=== PATIENT | female | born 1955 | race Caucasian/White ===

== ENCOUNTER 2017-04-20 14:45 | Emergency (ER) | payer OTHER ==
[~2017-04-20] VITALS: Ht 157.5 cm; Wt 94.8 kg
[~2017-04-20 14:45] MED LIST: ACYC5CRE2 TP; AMLO5TAB4 PO; ASPI-496 PO; ASPI-621 PO; ATOR10TA9 PO; ATOR40TA78 PO; BENZ100C4 PO; CHOL100018 PO; DICY10CA3 PO; DIVA500T2 PO; DULO60CA7 PO; GABA100C8 PO; INSU100C5 SQ-INSULIN; INSU100I13 SC; INSU100I13 SQ-INSULIN; INSU100I17 SC; INSU100I17 SQ; INSU100I18 SQ; INSU100V8 SC; LEVO500T33 PO; LEVO75TA5 PO; LIRA0.6P SQ; LISI-167 PO; METF850T2 PO; METO10TA82 PO; MORP15TA3 PO; MORP30TA PO; OXYC-229 PO; OXYC5TAB3 PO; POLY17PO5 PO; RIZA10TA20 PO; SENN1TAB7 PO; SERT50TA5 PO; SIMV20TA PO; SIMV40TA3 PO; TIZA4CAP PO; VALA500T4 PO
[2017-04-20] MEDS ORDERED: PHENAZOPYRIDINE 200 MG TABLET PO ONE (16:00)
[2017-04-20] MEDS ORDERED: ONDANSETRON 2MG/ML, 2ML IVPush ONE (16:00)
[2017-04-20] MEDS ORDERED: SODIUM CHLORIDE 0.9% 1,000ML IVBOLUS ONE (16:00)
[2017-04-20 16:30] LABS: PH, VENOUS 7.443 pH (7.320-7.420)
[2017-04-20 16:38] LABS: ASPARTATE AMINO TRANSFERASE 20 U/L (15-37); BLOOD UREA NITROGEN 13 mg/dL (7-18)
[2017-04-20] MEDS ORDERED: ONDANSETRON 2MG/ML, 2ML ONE (18:13)
[2017-04-20] MEDS ORDERED: PHENAZOPYRIDINE 200 MG TABLET ONE (18:13)
[2017-04-20 18:30] VITALS: BP 125/81
[2017-04-20] MEDS ORDERED: CEFTRIAXONE PMX 1GM/50ML 50 ML IV ONE (18:30)
[2017-04-20] MEDS ORDERED: CEFTRIAXONE 1,000 MG IV ONE (18:30)
[2017-04-20] MEDS ORDERED: CEFTRIAXONE PMX 1GM/50ML 50 ML ONE (18:34)
[2017-04-20] MEDS ORDERED: DIAZ10TA PO (19:03)
[2017-04-20] MEDS ORDERED: INSU100C SQ-INSULIN (19:03)
[2017-04-20] MEDS ORDERED: OXYC-229 PO (19:03)
[2017-04-20] MEDS ORDERED: MORPHINE SULFATE 4 MG/ML, 1ML ONE (19:17)
[2017-04-20] MEDS ORDERED: MORPHINE SULFATE 4 MG/ML, 1ML IVPush ONE (19:30)
== END 2017-04-20 19:55 | disposition home or self-care (01) ==
LOC: ED 18:49
DX: N10 Acute pyelonephritis (principal); R10.84 Generalized abdominal pain; E11.65 Type 2 diabetes mellitus with hyperglycemia; E78.5 Hyperlipidemia, unspecified; E87.6 Hypokalemia; E03.9 Hypothyroidism, unspecified; Z90.49 Acquired absence of other specified parts of digestive tract; Z90.710 Acquired absence of both cervix and uterus; J45.909 Unspecified asthma, uncomplicated; Z86.73 Personal history of transient ischemic attack (TIA), and cerebral infarction without residual deficits
CPT/HCPCS: 36415; 74176; 80053; 81001; 82010; 82803; 85025; 87077; 87086; 96365; 96375; 99285; J0696; J2405; J7030; 87147; 87186

== ENCOUNTER → 2017-11-17 | Outpatient (CLI) | payer OTHER ==
[~2017-11-17] MED LIST changes: +BENZ-17 PO; -BENZ100C4 PO; +CHOL100012 PO; -CHOL100018 PO; +DIAZ10TA PO; +GABA-826 PO; -GABA100C8 PO; +INSU100C SQ-INSULIN; -LEVO500T33 PO; +LEVO500T47 PO; -OXYC-229 PO; +OXYC-307 PO
== END | disposition home or self-care (01) ==
LOC: CFH 09:35
PROVIDERS: ATTEND Nurse Practitioner
DX: Z13.820 Encounter for screening for osteoporosis (principal); N95.8 Other specified menopausal and perimenopausal disorders
CPT/HCPCS: 77080

== ENCOUNTER → 2017-11-26 | Outpatient (CLI) | payer OTHER ==
[~2017-11-26] MED LIST changes: +FENO145T13 PO; +INSU300I INJ; +LISI1TAB7 PO; +OXYB5TAB7 PO
[2017-11-26 09:19] LABS: ALANINE AMINOTRANSFERASE 30 U/L (12-78); ALBUMIN 3.7 g/dL (3.4-5.0); ANION GAP 9 mmol/L (5-15); CALCIUM 9.1 mg/dL (8.5-10.1); CHLORIDE 107 mmol/L (98-107); CREATININE 0.82 mg/dL (0.55-1.02)
[2017-11-26 09:22] LABS: ALKALINE PHOSPHATASE 128 U/L (45-117); BILIRUBIN,TOTAL 0.4 mg/dL (0.2-1.0); TOTAL PROTEIN 7.4 g/dL (6.4-8.2)
[2017-11-26 09:43] LABS: MICROSCOPIC INDICATED
[2017-11-26 09:47] LABS: CULTURE INDICATED? YES
== END | disposition home or self-care (01) ==
LOC: STAR 07:57
PROVIDERS: ATTEND Obstetrics & Gynecology Female Pelvic Medicine and Reconstructive Surgery
DX: N39.3 Stress incontinence (female) (male) (principal); N81.2 Incomplete uterovaginal prolapse
CPT/HCPCS: 36415; 80053; 81001; 87077; 87086; 87186; 93005

== ENCOUNTER 2017-11-30 09:31 | Day surgery (SDC) | payer OTHER ==
[~2017-11-30] VITALS: Ht 157.5 cm; Wt 93.9 kg
[~2017-11-30 09:31] MED LIST changes: +BUPIVACAINE/PF 0.25% ONE; +EPINEPHRINE 1 MG/ML, 1ML ONE; +NEOMY/POLYMYXIN B GU IRR. 1 ML IRRIG ONE
[2017-11-30] MEDS ORDERED: LACTATED RINGERS 1,000 ML IV SCH (09:50)
[2017-11-30 10:06] VITALS: BP 113/79
[2017-11-30] MEDS ORDERED: ALBU18HF INH (10:42)
[2017-11-30] MEDS ORDERED: FENTANYL PF 100 MCG/2ML ONE ×3 (10:54→13:30)
[2017-11-30] MEDS: FENTANYL PF 100 MCG/2ML IVPush PRN ×2 (11:01→11:43)
[2017-11-30] MEDS ORDERED: LIDOCAINE-MPF 2% ,5ML ONE (12:24)
[2017-11-30] MEDS ORDERED: PROPOFOL 10 MG/ML, 20ML ONE (12:24)
[2017-11-30] MEDS ORDERED: LIDOCAINE GEL 2%, 5ML ONE (12:24)
[2017-11-30] MEDS ORDERED: DEXAMETHASONE 4 MG/ML, 1ML ONE ×2 (12:39)
[2017-11-30] MEDS ORDERED: CEFAZOLIN 1,000 MG ONE ×2 (12:39)
[2017-11-30] MEDS ORDERED: ONDANSETRON 2MG/ML, 2ML ONE (12:39)
[2017-11-30] MEDS ORDERED: MEPERIDINE/PF 25MG/0.5ML IVPush PRN (13:30)
[2017-11-30] MEDS ORDERED: ONDANSETRON 2MG/ML, 2ML IVPush PRN (13:30)
[2017-11-30] MEDS ORDERED: ACETAMINOPHEN 325 MG TABLET PO PRN (13:30)
[2017-11-30] MEDS ORDERED: ACETAMINOPHEN 650 MG/20.3 ML UDC ONE (13:30)
[2017-11-30] MEDS ORDERED: morphine SULFATE 10 MG/ML, 1ML IV PRN (13:30)
[2017-11-30] MEDS ORDERED: OXYcodone 5 MG/5 ML ORAL.SOL UDC ONE ×2 (13:30→13:52)
[2017-11-30] MEDS ORDERED: HYDROcodone/APAP 7.5-325MG/15ML UDC PO PRN (13:30)
[2017-11-30] MEDS: FENTANYL PF 100 MCG/2ML IV PRN ×2 (13:31→13:39)
[2017-11-30] MEDS: OXYcodone 5 MG/5 ML ORAL.SOL UDC PO PRN ×2 (13:35→13:54)
[2017-11-30] MEDS ORDERED: KETOROLAC 30 MG/1 ML ONE (13:44)
[2017-11-30] MEDS ORDERED: HYDROmorphone 2 MG/ML, 1ML ONE (13:52)
[2017-11-30] MEDS: HYDROmorphone 1 MG/ML, 1ML IV PRN ×4 (13:58→14:22)
[2017-11-30] MEDS ORDERED: KETOROLAC 30 MG/1 ML IVPush PRN (14:00)
[2017-11-30] MEDS ORDERED: OXYcodone/APAP 5/325MG TABLET ONE (15:20)
[2017-11-30] MEDS ORDERED: OXYcodone/APAP 5/325MG TABLET PO ONE ×2 (15:30→16:00)
== END 2017-11-30 17:00 ==
LOC: OUT 09:31
PROVIDERS: ATTEND Obstetrics & Gynecology Female Pelvic Medicine and Reconstructive Surgery
DX: N99.3 Prolapse of vaginal vault after hysterectomy (principal); N39.46 Mixed incontinence; N94.10 Unspecified dyspareunia; E11.9 Type 2 diabetes mellitus without complications; I10 Essential (primary) hypertension; J45.909 Unspecified asthma, uncomplicated; G43.909 Migraine, unspecified, not intractable, without status migrainosus; Z90.49 Acquired absence of other specified parts of digestive tract; Z98.890 Other specified postprocedural states; Z90.710 Acquired absence of both cervix and uterus
CPT/HCPCS: 57265; 57282; 57288; 82962; C1771; J0171; J0690; J1100; J1170; J1885; J2405; J2704; J3010; J3490; J7120

== ENCOUNTER → 2018-05-27 | Outpatient (CLI) | payer OTHER ==
[~2018-05-27] MED LIST changes: +ALBU18HF INH; -BUPIVACAINE/PF 0.25% ONE; -EPINEPHRINE 1 MG/ML, 1ML ONE; -FENO145T13 PO; +FENO145T30 PO; -NEOMY/POLYMYXIN B GU IRR. 1 ML IRRIG ONE
== END | disposition home or self-care (01) ==
LOC: RAD 12:10
PROVIDERS: ATTEND Anesthesiology
DX: M96.1 Postlaminectomy syndrome, not elsewhere classified (principal); N94.89 Other specified conditions associated with female genital organs and menstrual cycle
CPT/HCPCS: 72110; 72220

== ENCOUNTER 2018-05-31 15:31 | Emergency (ER) | payer OTHER ==
[~2018-05-31] VITALS: Ht 157.5 cm; Wt 95.0 kg
[2018-05-31] MEDS ORDERED: ASPIRIN 81 MG TABLET CHEW ONE (15:47)
[2018-05-31] MEDS ORDERED: PLEASE ENTER HEIGHT AND WEIGHT MC SCH (16:00)
[2018-05-31] MEDS ORDERED: ASPIRIN 81 MG TABLET CHEW PO ONE (16:00)
[2018-05-31] MEDS ORDERED: SODIUM CHLORIDE FLUSH 10ML SYR IVF ONE (16:00)
[2018-05-31 16:46] LABS: BASOPHILS # (AUTO) 0.03 x10^3/uL (0-0.1); BASOPHILS % (AUTO) 0 % (0-1); EOSINOPHILS # (AUTO) 0.13 x10^3/uL (0-0.4); EOSINOPHILS % (AUTO) 2 % (1-7); LYMPHOCYTES # (AUTO) 2.54 x10^3/uL (1-3.4); LYMPHOCYTES % (AUTO) 30 % (22-44); MD NO; MEAN CORPUSCULAR HEMOGLOBIN 27.8 pg (27.0-34.8); MEAN CORPUSCULAR HGB CONC 34.2 g/dL (32.4-35.8); MEAN CORPUSCULAR VOLUME 81.3 fL (80-100); MEAN PLATELET VOLUME 8.5 fL (7.4-10.4); MONOCYTES # (AUTO) 0.47 x10^3/uL (0.2-0.8); MONOCYTES % (AUTO) 6 % (2-9); NEUTROPHILS # (AUTO) 5.31 x10^3/uL (1.8-6.8); NEUTROPHILS % (AUTO) 63 % (42-75); PLATELET COUNT 238 x10^3/uL (130-400); RED BLOOD COUNT 5.47 x10^6/uL (3.82-5.3); RED CELL DISTRIBUTION WIDTH 13.2 % (9.6-15.2)
[2018-05-31 16:57] LABS: ALBUMIN 3.5 g/dL (3.4-5.0); ANION GAP 10 mmol/L (5-15); CALCIUM 9.5 mg/dL (8.5-10.1); CHLORIDE 107 mmol/L (98-107); CREATININE 0.82 mg/dL (0.55-1.02)
[2018-05-31 17:01] LABS: TROPONIN I < 0.015 ng/mL (0.000-0.045)
[2018-05-31] MEDS ORDERED: HYDROmorphone 2 MG/ML, 1ML ONE (17:47)
[2018-05-31] MEDS ORDERED: HYDROmorphone 2 MG/ML, 1ML IVPush ONE (18:00)
[2018-05-31 18:35] LABS: TROPONIN I < 0.015 ng/mL (0.000-0.045)
[2018-05-31 18:58] VITALS: BP 167/93
== END 2018-05-31 19:01 | disposition home or self-care (01) ==
LOC: ED 18:17
DX: R07.89 Other chest pain (principal); R51 Headache; E03.9 Hypothyroidism, unspecified; E11.40 Type 2 diabetes mellitus with diabetic neuropathy, unspecified; Z86.73 Personal history of transient ischemic attack (TIA), and cerebral infarction without residual deficits; Z79.899 Other long term (current) drug therapy
CPT/HCPCS: 36415; 70450; 71045; 80048; 82040; 83880; 84484; 85025; 96374; 99285; J1170

== ENCOUNTER 2018-09-25 16:18 | Emergency (ER) | payer OTHER ==
[~2018-09-25] VITALS: Ht 157.5 cm; Wt 95.0 kg
[~2018-09-25 16:18] MED LIST changes: +METF850T10 PO; -METF850T2 PO; -SENN1TAB7 PO; +SENN1TAB8 PO
[2018-09-25] MEDS ORDERED: PROMETHAZINE 25 MG/ML, 1ML IM ONE (17:00)
[2018-09-25] MEDS ORDERED: HYDROmorphone 1 MG/ML, 1ML IM ONE (17:00)
[2018-09-25] MEDS ORDERED: HYDROmorphone 2 MG/ML, 1ML ONE (17:01)
[2018-09-25] MEDS ORDERED: PROMETHAZINE 25 MG/ML, 1ML ONE (17:01)
[2018-09-25] MEDS ORDERED: KETOROLAC 30 MG/1 ML ONE (17:56)
[2018-09-25] MEDS ORDERED: KETOROLAC 60 MG/2 ML IM ONE (18:00)
[2018-09-25 18:15] VITALS: BP 115/61
== END 2018-09-25 18:17 | disposition home or self-care (01) ==
LOC: ED 18:00
DX: G44.201 Tension-type headache, unspecified, intractable (principal); G89.29 Other chronic pain; E11.40 Type 2 diabetes mellitus with diabetic neuropathy, unspecified; E11.65 Type 2 diabetes mellitus with hyperglycemia; E66.01 Morbid (severe) obesity due to excess calories; Z68.38 Body mass index [BMI] 38.0-38.9, adult; Z86.73 Personal history of transient ischemic attack (TIA), and cerebral infarction without residual deficits
CPT/HCPCS: 70450; 93005; 96372; 99284; J1170; J1885; J2550

== ENCOUNTER → 2019-01-05 | Outpatient (CLI) | payer MEDICARE, MEDICAID ==
[~2019-01-05] MED LIST changes: -ASPI-621 PO; +ASPI81TA45 PO; +BREX0.25 PO; +MIRA50TA PO; +SERT50TA28 PO; -SERT50TA5 PO
[2019-01-05 11:06] LABS: ALANINE AMINOTRANSFERASE 34 U/L (12-78); ALBUMIN 3.7 g/dL (3.4-5.0); ANION GAP 6 mmol/L (5-15); CHLORIDE 103 mmol/L (98-107); CREATININE 0.65 mg/dL (0.55-1.02)
[2019-01-05 11:09] LABS: ALKALINE PHOSPHATASE 152 U/L (45-117); BILIRUBIN,TOTAL 0.5 mg/dL (0.2-1.0); TOTAL PROTEIN 7.1 g/dL (6.4-8.2)
== END | disposition home or self-care (01) ==
LOC: STAR 10:00
PROVIDERS: ATTEND Obstetrics & Gynecology Female Pelvic Medicine and Reconstructive Surgery
DX: Z01.818 Encounter for other preprocedural examination (principal); N39.3 Stress incontinence (female) (male); N81.10 Cystocele, unspecified; N81.6 Rectocele
CPT/HCPCS: 36415; 80053; 93005

== ENCOUNTER 2019-01-17 05:42 | Day surgery (SDC) | payer MEDICARE, MEDICAID ==
[~2019-01-17] VITALS: Ht 154.9 cm; Wt 93.3 kg
[~2019-01-17 05:42] MED LIST changes: +SENN-177 PO; -SENN1TAB8 PO
[2019-01-17] MEDS ORDERED: LACTATED RINGERS 1,000 ML IV SCH (06:08)
[2019-01-17 06:13] VITALS: BP 127/87
[2019-01-17] MEDS ORDERED: EPINEPHRINE 1 MG/ML, 1ML ONE (06:55)
[2019-01-17] MEDS ORDERED: BUPIVACAINE/PF 0.25% ONE (06:55)
[2019-01-17] MEDS ORDERED: FENTANYL PF 250 MCG/5ML ONE (07:19)
[2019-01-17] MEDS ORDERED: MIDAZOLAM 1 MG/ML, 2ML ONE (07:19)
[2019-01-17] MEDS ORDERED: NEOMY/POLYMYXIN B GU IRR. 1 ML ONE (07:23)
[2019-01-17] MEDS ORDERED: DEXAMETHASONE 4 MG/ML, 5ML ONE (07:27)
[2019-01-17] MEDS ORDERED: ROCURONIUM 10 MG/ML,10ML ONE (07:27)
[2019-01-17] MEDS ORDERED: CEFAZOLIN 1,000 MG ONE (07:27)
[2019-01-17] MEDS ORDERED: PROPOFOL 10 MG/ML, 20ML ONE (07:27)
[2019-01-17] MEDS ORDERED: ONDANSETRON 2MG/ML, 2ML ONE (07:27)
[2019-01-17] MEDS ORDERED: SUCCINYLCHOLINE 20 MG/ML, 10ML ONE (07:27)
[2019-01-17] MEDS ORDERED: DIAZEPAM 5 MG TABLET PO ONE (07:30)
[2019-01-17] MEDS ORDERED: ACETAMINOPHEN 500 MG TABLET PO ONE (07:30)
[2019-01-17] MEDS ORDERED: BUPIVACAINE/PF-EPI 0.25% 1:200K INFIL ONE (07:44)
[2019-01-17] MEDS ORDERED: FENTANYL PF 100 MCG/2ML IV PRN (08:00)
[2019-01-17] MEDS ORDERED: ONDANSETRON 2MG/ML, 2ML IV PRN (08:00)
[2019-01-17] MEDS ORDERED: ONDANSETRON ODT 8 MG PO PRN (08:00)
[2019-01-17] MEDS ORDERED: LORazepam 2 MG/ML, 1ML IVPush PRN (08:00)
[2019-01-17] MEDS ORDERED: HYDROmorphone 2 MG/ML, 1ML IVPush PRN (08:00)
[2019-01-17] MEDS ORDERED: OXYcodone 5 MG/5 ML ORAL.SOL UDC PO PRN (08:00)
[2019-01-17] MEDS ORDERED: PROMETHAZINE 25 MG/ML, 1ML IV PRN (08:00)
[2019-01-17] MEDS ORDERED: KETOROLAC 30 MG/1 ML ONE (08:47)
[2019-01-17] MEDS ORDERED: KETOROLAC 30 MG/1 ML IVPush PRN (09:00)
[2019-01-17] MEDS ORDERED: OXYcodone 5 MG/5 ML ORAL.SOL UDC ONE (09:04)
== END 2019-01-17 13:05 | disposition home or self-care (01) ==
LOC: OUT 05:42
PROVIDERS: ATTEND Obstetrics & Gynecology Female Pelvic Medicine and Reconstructive Surgery
DX: N39.46 Mixed incontinence (principal); N81.89 Other female genital prolapse; N94.10 Unspecified dyspareunia; G43.909 Migraine, unspecified, not intractable, without status migrainosus; E11.9 Type 2 diabetes mellitus without complications; J45.909 Unspecified asthma, uncomplicated; I25.2 Old myocardial infarction; Z79.899 Other long term (current) drug therapy; Z90.49 Acquired absence of other specified parts of digestive tract; Z98.890 Other specified postprocedural states; Z90.710 Acquired absence of both cervix and uterus; Z88.8 Allergy status to other drugs, medicaments and biological substances; Z86.73 Personal history of transient ischemic attack (TIA), and cerebral infarction without residual deficits; Z79.84 Long term (current) use of oral hypoglycemic drugs
CPT/HCPCS: 57265; 57282; 57288; 82962; C1781; J0171; J0330; J0690; J1100; J1885; J2250; J2405; J2704; J3010; J3490; J7120

== ENCOUNTER 2019-02-01 17:43 | Emergency (ER) | payer MEDICARE, MEDICAID ==
[~2019-02-01] VITALS: Ht 154.9 cm; Wt 95.3 kg
[2019-02-01 18:28] VITALS: BP 186/103
[2019-02-01 18:55] LABS: BASOPHILS # (AUTO) 0.06 x10^3/uL (0-0.1); BASOPHILS % (AUTO) 1 % (0-1); EOSINOPHILS # (AUTO) 0.33 x10^3/uL (0-0.4); EOSINOPHILS % (AUTO) 4 % (1-7); LYMPHOCYTES # (AUTO) 2.97 x10^3/uL (1-3.4); LYMPHOCYTES % (AUTO) 39 % (22-44); MD NO; MEAN CORPUSCULAR HEMOGLOBIN 28.3 pg (27.0-34.8); MEAN CORPUSCULAR HGB CONC 34.3 g/dL (32.4-35.8); MEAN CORPUSCULAR VOLUME 82.5 fL (80-100); MONOCYTES % (AUTO) 7 % (2-9); NEUTROPHILS # (AUTO) 3.73 x10^3/uL (1.8-6.8); NEUTROPHILS % (AUTO) 49 % (42-75); PLATELET COUNT 287 x10^3/uL (130-400); RED BLOOD COUNT 5.48 x10^6/uL (3.82-5.3); RED CELL DISTRIBUTION WIDTH 13.4 % (9.6-15.2)
[2019-02-01 19:01] LABS: ALBUMIN 3.6 g/dL (3.4-5.0); ANION GAP 7 mmol/L (5-15); CALCIUM 9.1 mg/dL (8.5-10.1); CHLORIDE 107 mmol/L (98-107); CREATININE 0.58 mg/dL (0.55-1.02)
--- NOTE | 2019-02-01 20:15 | NUR ---
PT T ROOM PLACED IN GOWN AND IV STAREDD AWAITING CT SCAN
[2019-02-01] MEDS ORDERED: MORPHINE SULFATE 4 MG/ML, 1ML IVPush PRN (20:30)
[2019-02-01] MEDS ORDERED: MORPHINE SULFATE 4 MG/ML, 1ML ONE (20:41)
--- NOTE | 2019-02-01 20:45 | NUR ---
PT MEDICATED FOR PAIN AND AWAITING CT SCAN.
[2019-02-01] MEDS ORDERED: OMNIPAQUE 350 MG/ML, 100ML BOTTLE ONE (21:05)
[2019-02-01] MEDS ORDERED: KETOROLAC 30 MG/1 ML ONE (21:44)
[2019-02-01] MEDS ORDERED: KETOROLAC 30 MG/1 ML IVPush ONE (22:00)
== END 2019-02-01 22:04 | disposition home or self-care (01) ==
LOC: ED 21:57
DX: R10.31 Right lower quadrant pain (principal); E78.5 Hyperlipidemia, unspecified; E11.9 Type 2 diabetes mellitus without complications; E03.9 Hypothyroidism, unspecified; J45.909 Unspecified asthma, uncomplicated; F41.1 Generalized anxiety disorder; Z79.899 Other long term (current) drug therapy; Z90.710 Acquired absence of both cervix and uterus; Z90.49 Acquired absence of other specified parts of digestive tract; Z86.73 Personal history of transient ischemic attack (TIA), and cerebral infarction without residual deficits
CPT/HCPCS: 36415; 72193; 80048; 82040; 85025; 93971; 96374; 96375; 99284; J1885; Q9967

== ENCOUNTER 2019-02-18 18:21 | Emergency (ER) | payer MEDICARE, MEDICAID ==
[~2019-02-18] VITALS: Ht 154.9 cm; Wt 91.0 kg
--- NOTE | 2019-02-18 18:57 | NUR ---
PT BEDSIDE REPORT FROM KARL MATTHEWS. THIS RN TO ASSUME CARE OF PT. PA AT BEDSIDE FOR ASSESSMENT.
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
[2019-02-18] MEDS ORDERED: SODIUM CHLORIDE FLUSH 10ML SYR IVF ONE (19:00)
[2019-02-18] MEDS ORDERED: MORPHINE SULFATE 4 MG/ML, 1ML IVPush PRN (19:00)
[2019-02-18] MEDS ORDERED: ONDANSETRON 2MG/ML, 2ML IVPush ONE (19:00)
[2019-02-18] MEDS ORDERED: ONDANSETRON 2MG/ML, 2ML ONE (19:02)
[2019-02-18] MEDS ORDERED: MORPHINE SULFATE 4 MG/ML, 1ML ONE (19:02)
[2019-02-18 19:20] LABS: ALBUMIN 3.8 g/dL (3.4-5.0); ANION GAP 8 mmol/L (5-15); CALCIUM 9.2 mg/dL (8.5-10.1); CHLORIDE 107 mmol/L (98-107); CREATININE 0.74 mg/dL (0.55-1.02)
[2019-02-18 19:27] LABS: BASOPHILS # (AUTO) 0.06 x10^3/uL (0-0.1); BASOPHILS % (AUTO) 1 % (0-1); EOSINOPHILS # (AUTO) 0.33 x10^3/uL (0-0.4); EOSINOPHILS % (AUTO) 4 % (1-7); LYMPHOCYTES # (AUTO) 2.81 x10^3/uL (1-3.4); LYMPHOCYTES % (AUTO) 35 % (22-44); MD NO; MEAN CORPUSCULAR HEMOGLOBIN 28.3 pg (27.0-34.8); MEAN CORPUSCULAR HGB CONC 34.3 g/dL (32.4-35.8); MEAN CORPUSCULAR VOLUME 82.5 fL (80-100); MEAN PLATELET VOLUME 8.6 fL (7.4-10.4); MONOCYTES # (AUTO) 0.55 x10^3/uL (0.2-0.8); MONOCYTES % (AUTO) 7 % (2-9); NEUTROPHILS # (AUTO) 4.35 x10^3/uL (1.8-6.8); NEUTROPHILS % (AUTO) 54 % (42-75); PLATELET COUNT 260 x10^3/uL (130-400); RED BLOOD COUNT 5.39 x10^6/uL (3.82-5.3); RED CELL DISTRIBUTION WIDTH 13.2 % (9.6-15.2)
--- NOTE | 2019-02-18 19:35 | NUR ---
PT STATES "MORPHINE DOES NOTHING FOR ME" PA MADE AWARE. PA STATES TO GIVE MORPHINE AND PT VERBALLY AGREES.
[2019-02-18 19:46] LABS: CULTURE INDICATED? YES; MICROSCOPIC INDICATED
--- NOTE | 2019-02-18 19:50 | NUR ---
PT IN US.
[2019-02-18 20:02] LABS: ALKALINE PHOSPHATASE 122 U/L (45-117); BILIRUBIN,TOTAL 0.5 mg/dL (0.2-1.0); TOTAL PROTEIN 6.6 g/dL (6.4-8.2)
--- NOTE | 2019-02-18 20:10 | NUR ---
GIVEN ICE CHIPS PER REQUEST. AWAITING US RESULTS.
[2019-02-18 20:14] LABS: ALANINE AMINOTRANSFERASE 29 U/L (12-78)
[2019-02-18] MEDS ORDERED: CEFTRIAXONE PMX 1GM/50ML 50 ML ONE (20:21)
[2019-02-18 20:24] VITALS: BP 156/80
--- NOTE | 2019-02-18 20:25 | NUR ---
ABX INFUSING AND THEN TBDC.
[2019-02-18] MEDS ORDERED: CEFTRIAXONE PMX 1GM/50ML 50 ML IV ONE (20:30)
[2019-02-18] MEDS ORDERED: CEFTRIAXONE 1,000 MG IM ONE (20:30)
== END 2019-02-18 20:47 | disposition home or self-care (01) ==
LOC: ED 20:40
DX: N30.01 Acute cystitis with hematuria (principal); G89.29 Other chronic pain; R10.2 Pelvic and perineal pain; E11.65 Type 2 diabetes mellitus with hyperglycemia; Z90.49 Acquired absence of other specified parts of digestive tract; Z90.710 Acquired absence of both cervix and uterus; Z86.73 Personal history of transient ischemic attack (TIA), and cerebral infarction without residual deficits
CPT/HCPCS: 36415; 76830; 80053; 81001; 83690; 85025; 87077; 87086; 87147; 96365; 96375; 99284; J0696; J2405

== ENCOUNTER → 2019-02-23 | Outpatient (CLI) | payer MEDICARE, MEDICAID | END | disposition home or self-care (01) | LOC: RAD 09:59 | PROVIDERS: ATTEND Nurse Practitioner Primary Care | DX: M16.11 Unilateral primary osteoarthritis, right hip (principal) ==

== ENCOUNTER 2019-03-04 10:11 | Emergency (ER) | payer MEDICARE, MEDICAID ==
[~2019-03-04] VITALS: Ht 154.9 cm; Wt 90.8 kg
--- NOTE | 2019-03-04 10:34 | NUR ---
PT UP TO RESTROOM FOR UA SPECIMEN AND POSSIBLY STOOL SAMPLE DUE TO DIARRHEA. PT C/O N/V/D FOR 2 WEEKS WITH LUQ ABD PAIN OVER SAME TIME. PT HAS BEEN TREATED WITH ANTIBIOTICS FOR UTI THAT PER PT SHE DID NOT NEED PER HER PMD. CHART UP FOR .
[2019-03-04 11:23] LABS: MICROSCOPIC AUTO
[2019-03-04 11:24] LABS: CULTURE INDICATED? YES
[2019-03-04] MEDS ORDERED: FAMOTIDINE 20 MG/2 ML ONE (11:26)
[2019-03-04] MEDS ORDERED: ONDANSETRON 2MG/ML, 2ML ONE (11:26)
[2019-03-04] MEDS ORDERED: SODIUM CHLORIDE FLUSH 10ML SYR IVF ONE (11:30)
[2019-03-04] MEDS ORDERED: ONDANSETRON 2MG/ML, 2ML IVPush ONE (11:30)
[2019-03-04] MEDS ORDERED: SODIUM CHLORIDE 0.9% 1,000ML IVBOLUS ONE (11:30)
[2019-03-04] MEDS ORDERED: FAMOTIDINE 20 MG/2 ML IVP ONE (11:30)
[2019-03-04] MEDS ORDERED: MORPHINE SULFATE 4 MG/ML, 1ML ONE ×2 (11:56→12:49)
[2019-03-04 12:03] LABS: CLOSTRIDIUM DIFFICILE ANTIGEN NEGATIVE; CLOSTRIDIUM DIFFICILE TOXIN NEGATIVE (Negative)
[2019-03-04] MEDS: MORPHINE SULFATE 4 MG/ML, 1ML IVPush PRN ×2 (12:04→12:51)
[2019-03-04 12:11] LABS: BASOPHILS # (AUTO) 0.04 x10^3/uL (0-0.1); BASOPHILS % (AUTO) 1 % (0-1); EOSINOPHILS # (AUTO) 0.13 x10^3/uL (0-0.4); EOSINOPHILS % (AUTO) 2 % (1-7); LYMPHOCYTES # (AUTO) 2.23 x10^3/uL (1-3.4); LYMPHOCYTES % (AUTO) 37 % (22-44); MD NO; MEAN CORPUSCULAR HEMOGLOBIN 27.4 pg (27.0-34.8); MEAN CORPUSCULAR HGB CONC 33.7 g/dL (32.4-35.8); MEAN CORPUSCULAR VOLUME 81.5 fL (80-100); MEAN PLATELET VOLUME 8.8 fL (7.4-10.4); MONOCYTES # (AUTO) 0.43 x10^3/uL (0.2-0.8); MONOCYTES % (AUTO) 7 % (2-9); NEUTROPHILS # (AUTO) 3.26 x10^3/uL (1.8-6.8); NEUTROPHILS % (AUTO) 54 % (42-75); PLATELET COUNT 307 x10^3/uL (130-400); RED BLOOD COUNT 5.18 x10^6/uL (3.82-5.3)
[2019-03-04 12:15] LABS: ANION GAP 11 mmol/L (5-15); CALCIUM 9.2 mg/dL (8.5-10.1); CHLORIDE 106 mmol/L (98-107); CREATININE 0.95 mg/dL (0.55-1.02)
[2019-03-04 12:16] LABS: ALANINE AMINOTRANSFERASE 34 U/L (12-78); ALBUMIN 3.8 g/dL (3.4-5.0)
[2019-03-04 12:18] LABS: ALKALINE PHOSPHATASE 121 U/L (45-117); BILIRUBIN,TOTAL 0.5 mg/dL (0.2-1.0)
--- NOTE | 2019-03-04 12:37 | NUR ---
P TUP TO THE RESTROOM. CHART UP FOR MD RECHECK. PT AWARE.
[2019-03-04 12:53] VITALS: BP 166/97
--- NOTE | 2019-03-04 14:23 | NUR ---
DR. LOZANO AT BEDSIDE.
--- NOTE | 2019-03-04 15:06 | NUR ---
Patient/Caregiver given discharge instructions and they have confirmed that they understand the instructions. Patient ambulatory with steady gait.
== END 2019-03-04 15:07 | disposition home or self-care (01) ==
LOC: ED 11:13
DX: R19.7 Diarrhea, unspecified (principal); R11.2 Nausea with vomiting, unspecified; R10.9 Unspecified abdominal pain; E11.9 Type 2 diabetes mellitus without complications; E03.9 Hypothyroidism, unspecified; F41.1 Generalized anxiety disorder; I10 Essential (primary) hypertension; E78.5 Hyperlipidemia, unspecified; J45.909 Unspecified asthma, uncomplicated; E66.01 Morbid (severe) obesity due to excess calories; Z68.37 Body mass index [BMI] 37.0-37.9, adult; Z86.73 Personal history of transient ischemic attack (TIA), and cerebral infarction without residual deficits; Z90.49 Acquired absence of other specified parts of digestive tract; Z90.710 Acquired absence of both cervix and uterus
CPT/HCPCS: 36415; 74176; 80053; 81001; 83690; 85025; 87086; 87324; 96361; 96374; 96375; 96376; 99284; J2405; J3490; J7030

== ENCOUNTER 2019-03-31 08:31 | Emergency (ER) | payer MEDICARE, MEDICAID ==
[~2019-03-31] VITALS: Ht 154.9 cm; Wt 91.4 kg
[2019-03-31 08:35] VITALS: BP 138/77
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
[2019-03-31 09:54] LABS: BASOPHILS # (AUTO) 0.05 x10^3/uL (0-0.1); BASOPHILS % (AUTO) 1 % (0-1); EOSINOPHILS # (AUTO) 0.25 x10^3/uL (0-0.4); EOSINOPHILS % (AUTO) 3 % (1-7); LYMPHOCYTES # (AUTO) 2.58 x10^3/uL (1-3.4); LYMPHOCYTES % (AUTO) 35 % (22-44); MD NO; MEAN CORPUSCULAR HEMOGLOBIN 28.4 pg (27.0-34.8); MEAN CORPUSCULAR HGB CONC 33.6 g/dL (32.4-35.8); MEAN CORPUSCULAR VOLUME 84.5 fL (80-100); MEAN PLATELET VOLUME 8.1 fL (7.4-10.4); MONOCYTES % (AUTO) 7 % (2-9); NEUTROPHILS # (AUTO) 3.99 x10^3/uL (1.8-6.8); NEUTROPHILS % (AUTO) 54 % (42-75); PLATELET COUNT 283 x10^3/uL (130-400); RED BLOOD COUNT 5.27 x10^6/uL (3.82-5.3); RED CELL DISTRIBUTION WIDTH 13.9 % (9.6-15.2)
[2019-03-31 09:56] LABS: MICROSCOPIC AUTO
[2019-03-31 09:56] LABS: ALANINE AMINOTRANSFERASE 32 U/L (12-78); ALBUMIN 3.7 g/dL (3.4-5.0); ANION GAP 7 mmol/L (5-15); CALCIUM 9.3 mg/dL (8.5-10.1); CHLORIDE 105 mmol/L (98-107)
[2019-03-31 09:58] LABS: ALKALINE PHOSPHATASE 140 U/L (45-117); BILIRUBIN,TOTAL 0.4 mg/dL (0.2-1.0); TOTAL PROTEIN 6.8 g/dL (6.4-8.2)
[2019-03-31 10:08] LABS: CULTURE INDICATED? YES
[2019-03-31] MEDS ORDERED: OMNIPAQUE 350 MG/ML, 100ML BOTTLE ONE (10:21)
[2019-03-31] MEDS ORDERED: CEFTRIAXONE PMX 1GM/50ML 50 ML ONE (10:45)
[2019-03-31] MEDS ORDERED: CEFTRIAXONE PMX 1GM/50ML 50 ML IV ONE (11:00)
[2019-03-31] MEDS ORDERED: BENZONATATE 100 MG CAPSULE ONE (11:10)
--- NOTE | 2019-03-31 11:29 | NUR ---
Patient/Caregiver given discharge instructions and they have confirmed that they understand the instructions. Patient ambulatory with steady gait.
== END 2019-03-31 11:31 | disposition home or self-care (01) ==
LOC: ED 10:24
DX: S39.012A Strain of muscle, fascia and tendon of lower back, initial encounter (principal); N10 Acute pyelonephritis; E11.65 Type 2 diabetes mellitus with hyperglycemia; I10 Essential (primary) hypertension; G89.29 Other chronic pain; Z86.73 Personal history of transient ischemic attack (TIA), and cerebral infarction without residual deficits; E78.5 Hyperlipidemia, unspecified; F41.1 Generalized anxiety disorder; Z90.49 Acquired absence of other specified parts of digestive tract; Z90.710 Acquired absence of both cervix and uterus; Z90.89 Acquired absence of other organs; V59.49XA Driver of pick-up truck or van injured in collision with other motor vehicles in traffic accident, initial encounter; Y93.89 Activity, other specified; Y92.89 Other specified places as the place of occurrence of the external cause; Y99.8 Other external cause status
CPT/HCPCS: 36415; 71101; 74177; 80053; 81001; 85025; 87077; 87086; 87186; 96365; 99284; J0696; Q9967

== ENCOUNTER 2019-05-14 01:26 | Emergency (ER) | payer MEDICARE, MEDICAID ==
[~2019-05-14] VITALS: Ht 157.5 cm; Wt 91.4 kg
--- NOTE | 2019-05-14 01:39 | NUR ---
PT ARRIVES TO ED WITH C/O OF SOB ONSET AT MIDNIGHT, ALSO COMPLAINING BAD HEADACHE FOR TWO DAYS, ALSO COMPLAIN OF TINGLING AND PAIN L ARM ONSET 2300. PT STATES THAT HER B/P 180/90 SO HER HAD HER TAKE A LISINOPRIL 40MG 30 MINUTES AGO. NOTES THAT HER BLOOD SUGAR WAS 289 AT 1900. EKG OBTAINED IN TRIAGE. PT REPORTS SLIGHT CHEST PRESSURE WHEN SHE WAS SOB. PT DENIES ANY TRUAMA OR FALL. PT CONNECTED TO MONITORS AND CALL LIGHT IN REACH, VSS. AWAITING FURTHER ORDERS.
[2019-05-14] MEDS ORDERED: LORazepam 1MG TABLET ONE (02:00)
[2019-05-14] MEDS ORDERED: SODIUM CHLORIDE FLUSH 10ML SYR IVF ONE (02:00)
[2019-05-14] MEDS ORDERED: IBUPROFEN 600 MG TABLET PO ONE (02:00)
[2019-05-14] MEDS ORDERED: LORazepam 1MG TABLET PO ONE (02:00)
[2019-05-14] MEDS ORDERED: IBUPROFEN 600 MG TABLET ONE (02:00)
--- NOTE | 2019-05-14 02:03 | NUR ---
PT MEDICATED PER EMAR. PT TOLERATED WELL.
[2019-05-14 02:05] LABS: ALANINE AMINOTRANSFERASE 32 U/L (12-78); ALBUMIN 3.7 g/dL (3.4-5.0); ANION GAP 11 mmol/L (5-15); CALCIUM 9.9 mg/dL (8.5-10.1); CHLORIDE 105 mmol/L (98-107); CREATININE 0.96 mg/dL (0.55-1.02); T4 (THYROXINE) 9.3 mcg/dL (4.8-13.9)
[2019-05-14 02:09] LABS: ALKALINE PHOSPHATASE 136 U/L (45-117); BILIRUBIN,TOTAL 0.5 mg/dL (0.2-1.0); TOTAL PROTEIN 7.4 g/dL (6.4-8.2); TROPONIN I < 0.015 ng/mL (0.000-0.045)
[2019-05-14 02:26] LABS: BASOPHILS # (AUTO) 0.04 x10^3/uL (0-0.1); BASOPHILS % (AUTO) 0 % (0-1); EOSINOPHILS # (AUTO) 0.33 x10^3/uL (0-0.4); EOSINOPHILS % (AUTO) 3 % (1-7); LYMPHOCYTES # (AUTO) 3.76 x10^3/uL (1-3.4); LYMPHOCYTES % (AUTO) 39 % (22-44); MD NO; MEAN CORPUSCULAR HEMOGLOBIN 28.4 pg (27.0-34.8); MEAN CORPUSCULAR HGB CONC 33.5 g/dL (32.4-35.8); MEAN CORPUSCULAR VOLUME 84.7 fL (80-100); MEAN PLATELET VOLUME 8.7 fL (7.4-10.4); MONOCYTES # (AUTO) 0.76 x10^3/uL (0.2-0.8); MONOCYTES % (AUTO) 8 % (2-9); NEUTROPHILS # (AUTO) 4.65 x10^3/uL (1.8-6.8); NEUTROPHILS % (AUTO) 49 % (42-75); PLATELET COUNT 263 x10^3/uL (130-400); RED BLOOD COUNT 5.62 x10^6/uL (3.82-5.3); RED CELL DISTRIBUTION WIDTH 13.2 % (9.6-15.2)
--- NOTE | 2019-05-14 02:49 | NUR ---
PT AMB TO BR AND BACK TO ROOM WITH STEADY GAIT.
[2019-05-14 02:53] VITALS: BP 123/76
--- NOTE | 2019-05-14 03:47 | NUR ---
pt given dc instructions. pt's aox4. resps even and unlabored. no acute distress at dc. pt amb to dc with steady gait.
== END 2019-05-14 03:48 | disposition home or self-care (01) ==
LOC: ED 03:04
DX: R07.2 Precordial pain (principal); F41.1 Generalized anxiety disorder; I10 Essential (primary) hypertension; E11.9 Type 2 diabetes mellitus without complications; J45.909 Unspecified asthma, uncomplicated; Z86.73 Personal history of transient ischemic attack (TIA), and cerebral infarction without residual deficits
CPT/HCPCS: 36415; 71045; 80053; 83735; 83880; 84436; 84443; 84484; 85025; 93005; 99284

== ENCOUNTER 2019-09-08 16:58 | Observation (INO) | payer MEDICARE ==
[~2019-09-08] VITALS: Ht 157.5 cm; Wt 96.4 kg
[~2019-09-08 16:58] MED LIST changes: +LISI1TAB20 PO; -LISI1TAB7 PO; +MORP-29 PO; -MORP15TA3 PO; +OXYB5TAB10 PO; -OXYB5TAB7 PO
--- NOTE | 2019-09-08 17:58 | NUR ---
DIRECTOR ADVERTISING: PT TO ROOM FROM LOBBY
--- NOTE | 2019-09-08 18:10 | NUR ---
ESCORTED PATIENT TO ROOM 18. PT CHANGED INTO A GOWN. WARM BLANKET PROVIDED. CONTINUOUS CARDIAC AND SPO2 MONITORS APPLIED.
[2019-09-08] MEDS ORDERED: METF-688 PO (18:14)
[2019-09-08] MEDS ORDERED: GABA300C10 PO (18:14)
--- NOTE | 2019-09-08 18:18 | NUR ---
DR. HANLEY AT BEDSIDE.
[2019-09-08] MEDS ORDERED: KETOROLAC 30 MG/1 ML IM ONE (18:30)
[2019-09-08] MEDS ORDERED: KETOROLAC 30 MG/1 ML ONE (18:47)
[2019-09-08 18:50] LABS: BASOPHILS # (AUTO) 0.04 x10^3/uL (0-0.1); BASOPHILS % (AUTO) 1 % (0-1); EOSINOPHILS # (AUTO) 0.26 x10^3/uL (0-0.4); EOSINOPHILS % (AUTO) 4 % (1-7); LYMPHOCYTES # (AUTO) 2.81 x10^3/uL (1-3.4); LYMPHOCYTES % (AUTO) 38 % (22-44); MD NO; MEAN CORPUSCULAR HGB CONC 33.1 g/dL (32.4-35.8); MEAN CORPUSCULAR VOLUME 84.5 fL (80-100); MEAN PLATELET VOLUME 8.6 fL (7.4-10.4); MONOCYTES # (AUTO) 0.56 x10^3/uL (0.2-0.8); MONOCYTES % (AUTO) 8 % (2-9); NEUTROPHILS # (AUTO) 3.75 x10^3/uL (1.8-6.8); NEUTROPHILS % (AUTO) 51 % (42-75); PLATELET COUNT 240 x10^3/uL (130-400); RED BLOOD COUNT 5.22 x10^6/uL (3.82-5.3); RED CELL DISTRIBUTION WIDTH 12.9 % (9.6-15.2)
[2019-09-08 18:55] LABS: INTERNATIONAL NORMALIZED RATIO 1.01 (0.93-1.1); PROTHROMBIN TIME 10.6 Seconds (9.6-11.5)
[2019-09-08 18:58] LABS: ALBUMIN 3.6 g/dL (3.4-5.0); ANION GAP 5 mmol/L (5-15); CALCIUM 9.2 mg/dL (8.5-10.1); CHLORIDE 108 mmol/L (98-107); CREATININE 0.82 mg/dL (0.55-1.02)
[2019-09-08 19:06] LABS: TROPONIN I < 0.015 ng/mL (0.000-0.045)
--- NOTE | 2019-09-08 19:25 | NUR ---
PT RESTING ON GURNEY, MONITORS IN PLACE, SIDERAILS UP X2, CALL LIGHT WITHIN REACH. AWAITING ADMIT
--- NOTE | 2019-09-08 20:10 | NUR ---
CALLED RN FOR REPORT, NOTIFIED THAT PT IN PT'S ROOM AT THIS TIME AND WILL CALL THIS RN BACK
--- NOTE | 2019-09-08 20:42 | NUR ---
PT ASSISTED TO RR VIA W/C, TOLERATED TRANSFER WITHOUT DIFFICULTY
[2019-09-08 21:04] VITALS: BP 126/80
[2019-09-08] MEDS ORDERED: BISACODYL 10 MG SUPP PR PRN (21:30)
[2019-09-08] MEDS ORDERED: morphine SULFATE 10 MG/ML, 1ML IVPush PRN (21:30)
[2019-09-08] MEDS ORDERED: ONDANSETRON ODT 4 MG PO PRN (21:30)
[2019-09-08] MEDS ORDERED: ONDANSETRON 2MG/ML, 2ML IVPush PRN (21:30)
[2019-09-08] MEDS ORDERED: ACETAMINOPHEN 325 MG TABLET PO PRN (21:30)
[2019-09-08] MEDS ORDERED: PROMETHAZINE 25 MG/ML, 1ML IM PRN (21:30)
[2019-09-08] MEDS: INSULIN LISPRO 100 UNITS/ML, PEN SQ-INSULIN SCH (21:30)
[2019-09-08] MEDS ORDERED: POLYETHYLENE GLYCOL 17 GM PACKET PO PRN (21:30)
[2019-09-08] MEDS ORDERED: NITROGLYCERIN 0.4 MG BOTTLE (25 TABS) SL PRN (21:30)
[2019-09-08] MEDS ORDERED: DOCUSATE 100 MG CAPSULE PO PRN (21:30)
[2019-09-08] MEDS ORDERED: hydrALAzine 20 MG/ML, 1ML IVPush PRN (21:30)
[2019-09-08 21:49] LABS: HEMOGLOBIN A1C 9.1 % (4.2-6.3)
[2019-09-08 21:50] LABS: FREE T4 (FREE THYROXINE) 1.07 ng/dL (0.76-1.46)
[2019-09-08] MEDS ORDERED: INSULIN GLARGINE 100 UNITS/ML, PEN SQ-INSULIN SCH (22:00)
[2019-09-08] MEDS: OXYcodone/APAP 10/325MG TABLET PO SCH (22:49)
[2019-09-08] MEDS: GABAPENTIN 300 MG CAPSULE PO SCH (22:49)
[2019-09-08] MEDS: HEPARIN 5,000 UNITS/ML, 1ML SQ SCH (22:50)
[2019-09-09] MEDS: OXYcodone IR 5MG TABLET PO PRN ×3 (00:06→08:19)
[2019-09-09 01:06] VITALS: BP 117/82
[2019-09-09 01:32] LABS: TROPONIN I < 0.015 ng/mL (0.000-0.045)
[2019-09-09 02:00] VITALS: BP 143/84
[2019-09-09 04:54] LABS: BASOPHILS # (AUTO) 0.07 x10^3/uL (0-0.1); BASOPHILS % (AUTO) 1 % (0-1); EOSINOPHILS # (AUTO) 0.35 x10^3/uL (0-0.4); EOSINOPHILS % (AUTO) 4 % (1-7); LYMPHOCYTES # (AUTO) 3.47 x10^3/uL (1-3.4); LYMPHOCYTES % (AUTO) 41 % (22-44); MD NO; MEAN CORPUSCULAR HEMOGLOBIN 28.3 pg (27.0-34.8); MEAN CORPUSCULAR HGB CONC 33.3 g/dL (32.4-35.8); MONOCYTES # (AUTO) 0.66 x10^3/uL (0.2-0.8); MONOCYTES % (AUTO) 8 % (2-9); NEUTROPHILS # (AUTO) 3.86 x10^3/uL (1.8-6.8); NEUTROPHILS % (AUTO) 46 % (42-75); PLATELET COUNT 231 x10^3/uL (130-400); RED BLOOD COUNT 5.07 x10^6/uL (3.82-5.3)
[2019-09-09 05:06] LABS: ALANINE AMINOTRANSFERASE 31 U/L (12-78); ALBUMIN 3.3 g/dL (3.4-5.0); ANION GAP 6 mmol/L (5-15); CALCIUM 8.6 mg/dL (8.5-10.1); CHLORIDE 106 mmol/L (98-107); CHOLESTEROL, TOTAL 115 mg/dL (140-239)
[2019-09-09 05:10] LABS: ALKALINE PHOSPHATASE 121 U/L (45-117); BILIRUBIN,TOTAL 0.4 mg/dL (0.2-1.0); CHOL/HDL RATIO 2.3; HDL CHOL % 43 % (28-40); HDL CHOLESTEROL (DIRECT) 49 mg/dL (40-60); LDL CHOLESTEROL,CALCULATED 32 mg/dL (54-169); LDL/HDL RATIO 0.7 (0.5-3.0); TOTAL PROTEIN 6.2 g/dL (6.4-8.2); TRIGLYCERIDES 172 mg/dL (50-200); TROPONIN I < 0.015 ng/mL (0.000-0.045); VLDL CHOLESTEROL 34 mg/dL (0-25)
[2019-09-09] MEDS ORDERED: ASPIRIN 325 MG TABLET EC PO SCH (06:00)
[2019-09-09] MEDS: OXYcodone/APAP 10/325MG TABLET PO SCH ×3 (06:23→16:14)
[2019-09-09] MEDS: HEPARIN 5,000 UNITS/ML, 1ML SQ SCH ×2 (06:23→13:56)
[2019-09-09] MEDS: INSULIN LISPRO 100 UNITS/ML, PEN SQ-INSULIN SCH ×3 (07:11→16:13)
[2019-09-09 08:10] VITALS: BP 126/81
[2019-09-09] MEDS: GABAPENTIN 300 MG CAPSULE PO SCH ×2 (08:17→16:14)
[2019-09-09] MEDS ORDERED: REGADENOSON 0.4 MG/5 ML SYRINGE ONE (08:46)
[2019-09-09] MEDS ORDERED: TEMPLATE NON-FORMULARY MED. (Mirabegron** (Myrbetriq**) 50 MG) PO SCH (09:00)
[2019-09-09] MEDS ORDERED: LISINOPRIL 20 MG TABLET PO SCH (09:00)
[2019-09-09] MEDS ORDERED: HYDROCHLOROTHIAZIDE 25 MG TABLET PO SCH (09:00)
[2019-09-09] MEDS ORDERED: LEVOTHYROXINE 75 MCG TABLET PO SCH (09:00)
[2019-09-09] MEDS ORDERED: BREXPIPRAZOLE 0.25 MG PO SCH (09:00)
[2019-09-09] MEDS ORDERED: MAGNESIUM SULFATE PMX 2GM/50ML 50 ML IV ONE (12:00)
[2019-09-09 12:32] VITALS: BP 130/65
[2019-09-09 13:00] LABS: RAPID INFLUENZA A Negative (Negative); RAPID INFLUENZA B Negative (Negative)
== END 2019-09-09 17:13 | disposition home or self-care (01) ==
LOC: ED 18:54 → EDIP 19:00 → INTOOBSV 19:00 → ED 19:30 → 5SO 21:03 → DCLOUNGE 09-09 17:00
PROVIDERS: ADMIT Internal Medicine; ATTEND Internal Medicine
DX: R07.9 Chest pain, unspecified (principal); I10 Essential (primary) hypertension; E11.9 Type 2 diabetes mellitus without complications; E78.5 Hyperlipidemia, unspecified; E03.9 Hypothyroidism, unspecified; M54.5 Low back pain; J45.909 Unspecified asthma, uncomplicated; Z79.4 Long term (current) use of insulin; G47.30 Sleep apnea, unspecified
CPT/HCPCS: 36415; 71045; 78452; 80048; 80053; 80061; 82040; 82962; 83036; 83735; 83880; 84439; 84443; 84484; 85025; 85610; 87400; 93005; 93017; 93306; 96365; 96366; 96372; 99284; A9502; G0378; J1644; J1815; J1885; J2785; J3475

== ENCOUNTER 2019-10-14 10:09 | Emergency (ER) | payer MEDICARE ==
[~2019-10-14] VITALS: Ht 157.5 cm; Wt 94.1 kg
[~2019-10-14 10:09] MED LIST changes: +GABA300C10 PO; +METF-688 PO
--- NOTE | 2019-10-14 10:23 | NUR ---
PT CO OF A "PAINFUL LUMP ON HER LOWER BACK". AREA IS SWOLLEN AND PAINFUL TO TOUCH. PAITENT IS SITTING UPRIGHT. LAYING DOWN IS TOO PAINFUL. FRIEND IS SITTING BEDSIDE. CALL LIGHT WITHIN REACH
[2019-10-14 11:14] VITALS: BP 129/82
== END 2019-10-14 11:16 | disposition home or self-care (01) ==
LOC: ED 11:10
DX: M54.5 Low back pain (principal); E11.65 Type 2 diabetes mellitus with hyperglycemia; J45.909 Unspecified asthma, uncomplicated; Z86.73 Personal history of transient ischemic attack (TIA), and cerebral infarction without residual deficits; E78.5 Hyperlipidemia, unspecified; I10 Essential (primary) hypertension; E03.9 Hypothyroidism, unspecified; Z90.49 Acquired absence of other specified parts of digestive tract; Z90.710 Acquired absence of both cervix and uterus; Z90.89 Acquired absence of other organs; E66.01 Morbid (severe) obesity due to excess calories; Z68.37 Body mass index [BMI] 37.0-37.9, adult
CPT/HCPCS: 72131; 99284

== ENCOUNTER 2020-03-11 12:59 | Emergency (ER) | payer MEDICARE ==
[~2020-03-11] VITALS: Ht 157.5 cm; Wt 90.0 kg
[~2020-03-11 12:59] MED LIST changes: +FENO145T19 PO; -FENO145T30 PO; +SIMV40TA20 PO; -SIMV40TA3 PO
[2020-03-11 13:29] LABS: BASOPHILS # (AUTO) 0.04 x10^3/uL (0-0.1); BASOPHILS % (AUTO) 1 % (0-1); EOSINOPHILS # (AUTO) 0.27 x10^3/uL (0-0.4); EOSINOPHILS % (AUTO) 4 % (1-7); LYMPHOCYTES % (AUTO) 39 % (22-44); MD NO; MEAN CORPUSCULAR HEMOGLOBIN 27.5 pg (27.0-34.8); MEAN CORPUSCULAR HGB CONC 33.3 g/dL (32.4-35.8); MEAN CORPUSCULAR VOLUME 82.6 fL (80-100); MEAN PLATELET VOLUME 7.8 fL (7.4-10.4); MONOCYTES # (AUTO) 0.47 x10^3/uL (0.2-0.8); MONOCYTES % (AUTO) 7 % (2-9); NEUTROPHILS # (AUTO) 3.36 x10^3/uL (1.8-6.8); NEUTROPHILS % (AUTO) 50 % (42-75); PLATELET COUNT 250 x10^3/uL (130-400); RED CELL DISTRIBUTION WIDTH 13.5 % (9.6-15.2)
[2020-03-11] MEDS ORDERED: ONDANSETRON 2MG/ML, 2ML IVPush ONE (13:30)
[2020-03-11] MEDS ORDERED: SODIUM CHLORIDE FLUSH 10ML SYR IVF ONE (13:30)
[2020-03-11 13:41] LABS: ALANINE AMINOTRANSFERASE 33 U/L (12-78); ALBUMIN 3.6 g/dL (3.4-5.0); ANION GAP 7 mmol/L (5-15); CALCIUM 9.4 mg/dL (8.5-10.1); CHLORIDE 105 mmol/L (98-107); CREATININE 0.67 mg/dL (0.55-1.02)
[2020-03-11] MEDS ORDERED: MORPHINE SULFATE 4 MG/ML, 1ML ONE ×2 (13:42→14:25)
[2020-03-11] MEDS ORDERED: ONDANSETRON 2MG/ML, 2ML ONE (13:42)
[2020-03-11 13:43] LABS: ALKALINE PHOSPHATASE 116 U/L (45-117); BILIRUBIN,TOTAL 0.6 mg/dL (0.2-1.0)
[2020-03-11] MEDS: MORPHINE SULFATE 4 MG/ML, 1ML IVPush PRN ×2 (13:44→14:28)
[2020-03-11 14:15] LABS: MICROSCOPIC AUTO
[2020-03-11] MEDS ORDERED: OMNIPAQUE 350 MG/ML, 100ML BOTTLE ONE (14:17)
[2020-03-11 14:19] LABS: CULTURE INDICATED? YES
--- NOTE | 2020-03-11 14:44 | NUR ---
PT REQUESTED MORE PAIN MEDICATION, STATES THE FIRST DOSE DIDN'T HELP AT ALL. PT MEDICATED PER MAR, PT ON MONITOR, CALL LIGHT WITHIN REACH
[2020-03-11] MEDS ORDERED: HYDROmorphone 1 MG/ML, 1ML INJ ONE (15:18)
[2020-03-11] MEDS ORDERED: HYDROmorphone 1 MG/ML, 1ML INJ IV ONE (15:30)
[2020-03-11 16:35] VITALS: BP 139/85
--- NOTE | 2020-03-11 16:35 | NUR ---
PT STATES SHE HAS A RIDE HOME AND SOMEONE WILL BE HOME WITH HER, PT GIVEN DC INSTRUCTIONS AND AMBULATED TO FRONT WITH STEADY GAIT
== END 2020-03-11 16:42 | disposition home or self-care (01) ==
LOC: ED 13:30
DX: N28.89 Other specified disorders of kidney and ureter (principal); R10.84 Generalized abdominal pain; R63.0 Anorexia; E03.9 Hypothyroidism, unspecified; G89.29 Other chronic pain; E11.9 Type 2 diabetes mellitus without complications; J45.909 Unspecified asthma, uncomplicated; E78.5 Hyperlipidemia, unspecified; I10 Essential (primary) hypertension; E66.01 Morbid (severe) obesity due to excess calories; Z90.49 Acquired absence of other specified parts of digestive tract; Z90.710 Acquired absence of both cervix and uterus; Z86.73 Personal history of transient ischemic attack (TIA), and cerebral infarction without residual deficits
CPT/HCPCS: 36415; 74177; 80053; 81001; 83690; 85025; 87077; 87086; 96374; 96375; 96376; 99285; J1170; J2270; J2405; Q9967

== ENCOUNTER → 2020-03-13 | Outpatient (CLI) | payer MEDICARE ==
[~2020-03-13] MED LIST changes: +OMNIPAQUE 350 MG/ML, 100ML BOTTLE ONE
== END | disposition home or self-care (01) ==
LOC: RAD 15:28
PROVIDERS: ATTEND Family Medicine
DX: K76.0 Fatty (change of) liver, not elsewhere classified (principal); N28.1 Cyst of kidney, acquired; K57.30 Diverticulosis of large intestine without perforation or abscess without bleeding; N28.89 Other specified disorders of kidney and ureter; Z90.49 Acquired absence of other specified parts of digestive tract; Z90.710 Acquired absence of both cervix and uterus
CPT/HCPCS: 74178; Q9967

== ENCOUNTER 2020-07-03 06:16 | Emergency (ER) | payer MEDICARE ==
[~2020-07-03] VITALS: Ht 157.5 cm; Wt 91.9 kg
[~2020-07-03 06:16] MED LIST changes: -OMNIPAQUE 350 MG/ML, 100ML BOTTLE ONE
--- NOTE | 2020-07-03 06:42 | NUR ---
PT AMBULATORY TO BATHROOM, STEADY GAIT.
--- NOTE | 2020-07-03 06:45 | NUR ---
REPORT RECEIVED FROM MAXWELL MATTHEWS. PT RESTING ON [employer] W/ CALL LIGHT IN REACH AND SIDE RAILS UPX2. GRISELDA.
[2020-07-03] MEDS ORDERED: FAMOTIDINE 20 MG/2 ML ONE (06:55)
[2020-07-03] MEDS ORDERED: DICYCLOMINE 10 MG/ML, 2ML ONE (06:55)
[2020-07-03] MEDS ORDERED: DICYCLOMINE 10 MG/ML, 2ML IM ONE (07:00)
[2020-07-03] MEDS ORDERED: SODIUM CHLORIDE FLUSH 10ML SYR IVF ONE (07:00)
[2020-07-03] MEDS ORDERED: SODIUM CHLORIDE 0.9% 1,000ML IVBOLUS ONE (07:00)
[2020-07-03] MEDS ORDERED: FAMOTIDINE 20 MG/2 ML IVPush ONE (07:00)
[2020-07-03] MEDS ORDERED: ONDANSETRON 2MG/ML, 2ML IVPush ONE (07:00)
[2020-07-03 07:07] LABS: BASOPHILS # (AUTO) 0.03 x10^3/uL (0-0.1); BASOPHILS % (AUTO) 0 % (0-1); EOSINOPHILS # (AUTO) 0.26 x10^3/uL (0-0.4); EOSINOPHILS % (AUTO) 3 % (1-7); LYMPHOCYTES # (AUTO) 2.44 x10^3/uL (1-3.4); LYMPHOCYTES % (AUTO) 31 % (22-44); MD NO; MEAN CORPUSCULAR HEMOGLOBIN 27.4 pg (27.0-34.8); MEAN CORPUSCULAR HGB CONC 32.8 g/dL (32.4-35.8); MEAN CORPUSCULAR VOLUME 83.5 fL (80-100); MEAN PLATELET VOLUME 8.6 fL (7.4-10.4); MONOCYTES # (AUTO) 0.59 x10^3/uL (0.2-0.8); MONOCYTES % (AUTO) 8 % (2-9); NEUTROPHILS # (AUTO) 4.53 x10^3/uL (1.8-6.8); NEUTROPHILS % (AUTO) 58 % (42-75); PLATELET COUNT 237 x10^3/uL (130-400); RED BLOOD COUNT 5.29 x10^6/uL (3.82-5.3); RED CELL DISTRIBUTION WIDTH 13.5 % (9.6-15.2)
[2020-07-03 07:11] LABS: MICROSCOPIC INDICATED
[2020-07-03 07:16] LABS: ALANINE AMINOTRANSFERASE 35 U/L (12-78); ALBUMIN 3.5 g/dL (3.4-5.0); ANION GAP 8 mmol/L (5-15); CALCIUM 9.4 mg/dL (8.5-10.1); CHLORIDE 110 mmol/L (98-107)
[2020-07-03 07:18] LABS: ALKALINE PHOSPHATASE 141 U/L (45-117); BILIRUBIN,TOTAL 0.7 mg/dL (0.2-1.0); TOTAL PROTEIN 6.8 g/dL (6.4-8.2)
--- NOTE | 2020-07-03 07:21 | NUR ---
PIV STARTED AND PT MEDICATED PER EMAR. PT RESTING ON SEA W/ CALL LIGHT IN REACH, CONNECTED TO MONITORING, VSS, NADN. AWARE OF NEED FOR STOOL SAMPLE.
--- NOTE | 2020-07-03 07:40 | NUR ---
PT AMBULATED TO THE BR W/ A STEADY GAIT. HAT PLACED IN TOILET FOR STOOL SAMPLE.
[2020-07-03 07:47] LABS: ACETONE, SERUM Negative (Negative)
--- NOTE | 2020-07-03 07:49 | NUR ---
STOOL SAMPLE COLLECTED AND WALKED TO LAB. PT RETURNED TO ROOM, CONNECTED TO MONITORING.
[2020-07-03] MEDS ORDERED: CEFTRIAXONE PMX 1GM/50ML 50 ML ONE (08:00)
[2020-07-03 08:32] VITALS: BP 101/56
[2020-07-03] MEDS ORDERED: CEFTRIAXONE PMX 1GM/50ML 50 ML IV ONE (09:00)
[2020-07-03 09:08] LABS: CLOSTRIDIUM DIFFICILE ANTIGEN NEGATIVE; CLOSTRIDIUM DIFFICILE TOXIN NEGATIVE (Negative)
[2020-07-03 09:31] LABS: CRYPTOSPORIDIUM ANTIGEN Negative (Negative)
--- NOTE | 2020-07-03 10:32 | NUR ---
Patient given discharge instructions and they have confirmed that they understand the instructions. Patient ambulatory with steady gait.
== END 2020-07-03 10:29 | disposition home or self-care (01) ==
LOC: ED 06:29
DX: K52.9 Noninfective gastroenteritis and colitis, unspecified (principal); R00.0 Tachycardia, unspecified; Z90.89 Acquired absence of other organs
CPT/HCPCS: 36415; 74022; 80053; 81001; 82010; 82800; 83690; 85025; 87046; 87077; 87086; 87147; 87252; 87324; 87328; 87329; 87427; 89055; 93005; 96361; 96365; 96372; 96375; 99285; J0500; J0696; J2405; J3490; J7030; 87186

== ENCOUNTER 2020-10-11 11:49 | Outpatient (CLI) | payer MEDICARE ==
[~2020-10-11 11:49] MED LIST changes: -OXYC-307 PO; +OXYC-380 PO; -OXYC5TAB3 PO; +OXYC5TAB98 PO
[2020-10-11] MEDS ORDERED: OMNIPAQUE 350 MG/ML, 100ML BOTTLE ONE (12:45)
== END 2020-10-11 23:59 | disposition home or self-care (01) ==
LOC: CFH 11:49
PROVIDERS: ATTEND Physician Assistant
DX: C64.2 Malignant neoplasm of left kidney, except renal pelvis (principal); K76.0 Fatty (change of) liver, not elsewhere classified; N28.1 Cyst of kidney, acquired; N28.89 Other specified disorders of kidney and ureter; M51.36 Other intervertebral disc degeneration, lumbar region
CPT/HCPCS: 74170; 82565; Q9967

== ENCOUNTER 2020-12-26 17:34 | Emergency (ER) | payer MEDICARE ==
[~2020-12-26] VITALS: Ht 157.5 cm; Wt 100.0 kg
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
[2020-12-26] MEDS ORDERED: ACETAMINOPHEN 500 MG TABLET ONE (18:26)
[2020-12-26] MEDS ORDERED: ACETAMINOPHEN 500 MG TABLET PO ONE (18:30)
--- NOTE | 2020-12-26 18:40 | NUR ---
PT BACK FROM CT. USING BATHROOM W ASSIST
[2020-12-26 18:45] VITALS: BP 143/83
--- NOTE | 2020-12-26 18:47 | NUR ---
REPORT TO PHILLY
--- NOTE | 2020-12-26 18:50 | NUR ---
REPORT RECIEVED FROM, JOHNNY MATTHEWS. PT RESTING IN [facility], AWAITING CT SCAN RESULTS. NO OTHER NEEDS AT THIS TIME
== END 2020-12-26 19:49 | disposition home or self-care (01) ==
LOC: ED 19:30
DX: S16.1XXA Strain of muscle, fascia and tendon at neck level, initial encounter (principal); S00.03XA Contusion of scalp, initial encounter; R11.2 Nausea with vomiting, unspecified; X58.XXXA Exposure to other specified factors, initial encounter; Y93.89 Activity, other specified; Y92.89 Other specified places as the place of occurrence of the external cause; Y99.8 Other external cause status
CPT/HCPCS: 70450; 72125; 99285

== ENCOUNTER 2021-04-29 17:11 | Emergency (ER) | payer MEDICARE ==
[~2021-04-29] VITALS: Ht 157.5 cm; Wt 91.3 kg
[2021-04-29] MEDS ORDERED: SODIUM CHLORIDE FLUSH 10ML SYR IVF ONE (17:30)
--- NOTE | 2021-04-29 17:56 | NUR ---
First contact with pt. Pt c/o low abd pain and diarrhea x2 weeks. Pt reports nausea but no vomiting. Pt states that over the last two days her pain has gotten worse and she has developed SOB and L sided CP rated 10/10. Pt speaking in full sentences, appears uncomfortable. Pt able to change into gown and position herself in bed independently. Continuous heart, oxygen and BP Monitors applied, all safety measures observed.
[2021-04-29 17:59] LABS: BASOPHILS % (AUTO) 1 % (0-1); EOSINOPHILS % (AUTO) 4 % (1-7); LYMPHOCYTES % (AUTO) 34 % (22-44); MEAN CORPUSCULAR HGB CONC 34.2 g/dL (32.4-35.8); MEAN PLATELET VOLUME 7.9 fL (7.4-10.4); MONOCYTES % (AUTO) 6 % (2-9); NEUTROPHILS % (AUTO) 54 % (42-75); PLATELET COUNT 251 x10^3/uL (130-400); RED BLOOD COUNT 5.41 x10^6/uL (3.82-5.3)
[2021-04-29] MEDS ORDERED: MORPHINE SULFATE 4 MG/ML, 1ML IVPush PRN (18:00)
[2021-04-29] MEDS ORDERED: INSU100V8 SQ (18:00)
[2021-04-29] MEDS ORDERED: ONDANSETRON 2MG/ML, 2ML IVPush ONE (18:00)
[2021-04-29] MEDS ORDERED: ONDANSETRON 2MG/ML, 2ML ONE (18:05)
[2021-04-29] MEDS ORDERED: MORPHINE SULFATE 4 MG/ML, 1ML ONE (18:05)
[2021-04-29 18:10] LABS: ALBUMIN 3.3 g/dL (3.4-5.0); ANION GAP 9 mmol/L (5-15); CHLORIDE 107 mmol/L (98-107)
[2021-04-29 18:17] LABS: CREATININE 0.78 mg/dL (0.55-1.02); TROPONIN I < 0.015 ng/mL (0.000-0.045)
--- NOTE | 2021-04-29 18:20 | NUR ---
Pt ambulatory to bathroom and back to bed without difficulty. Pt medicated per MAR, denies other needs.
[2021-04-29] MEDS ORDERED: OMNIPAQUE 350 MG/ML, 100ML BOTTLE ONE (18:40)
[2021-04-29 18:41] LABS: MICROSCOPIC INDICATED
--- NOTE | 2021-04-29 18:48 | NUR ---
RECEIEVED REPORT FROM YUE MATTHEWS. TRANSFER OF CARE
[2021-04-29] MEDS ORDERED: SODIUM CHLORIDE 0.9% 1,000ML IVBOLUS ONE (19:00)
--- NOTE | 2021-04-29 19:26 | NUR ---
Patient is resting comfortably in bed. Bed in lowest, rails engaged, call light on lap. Vital Signs within normal limits. WCTM. PT GIVEN MORE BLANKETS. NO ADDITIONAL NEEDS OR QUETSIONS AT THIS TIME.
[2021-04-29 19:28] LABS: CLOSTRIDIUM DIFFICILE ANTIGEN NEGATIVE; CLOSTRIDIUM DIFFICILE TOXIN NEGATIVE (Negative)
[2021-04-29 19:51] VITALS: BP 161/92
--- NOTE | 2021-04-29 20:00 | NUR ---
Patient/Caregiver given discharge instructions and they have confirmed that they understand the instructions. Patient ambulatory with steady gait. NAD, all questions answered appropriately, denies additional needs at this time. No personal belongings left in room after discharge.
== END 2021-04-29 20:02 | disposition home or self-care (01) ==
LOC: ED 19:45
DX: N30.00 Acute cystitis without hematuria (principal); N28.89 Other specified disorders of kidney and ureter; R19.7 Diarrhea, unspecified; R11.0 Nausea; I10 Essential (primary) hypertension; E78.5 Hyperlipidemia, unspecified; E11.40 Type 2 diabetes mellitus with diabetic neuropathy, unspecified; E03.9 Hypothyroidism, unspecified; E66.01 Morbid (severe) obesity due to excess calories; Z90.49 Acquired absence of other specified parts of digestive tract; Z86.73 Personal history of transient ischemic attack (TIA), and cerebral infarction without residual deficits; Z68.36 Body mass index [BMI] 36.0-36.9, adult
CPT/HCPCS: 36415; 71045; 74177; 80048; 81001; 82040; 83690; 83880; 84484; 85025; 86850; 86900; 87077; 87086; 87186; 87324; 89055; 93005; 96361; 96374; 96375; 99285; J2270; J2405; J7030; Q9967

== ENCOUNTER 2021-07-23 15:00 | Emergency (ER) | payer MEDICARE ==
[~2021-07-23] VITALS: Ht 157.5 cm; Wt 93.9 kg
[~2021-07-23 15:00] MED LIST changes: +INSU100V8 SQ; -OXYC-380 PO; +OXYC-501 PO
--- NOTE | 2021-07-23 15:34 | NUR ---
PT SEEN IN TRIAGE BY DR HANLEY. NO CODE NEURO PER DR HANLEY. PT HAS A 22 G IN LEFT ARM. PT IS NOT ABLE TO GET A CTA DUE TO IV CATH SIZE. DR HANLEY AWARE.
--- NOTE | 2021-07-23 15:42 | NUR ---
20 G IV IN RIGHT FOREARM IN CT. PT READY FOR CTA
--- NOTE | 2021-07-23 15:44 | NUR ---
IN CT WITH PATIENT.
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
[2021-07-23] MEDS ORDERED: OMNIPAQUE 350 MG/ML, 100ML BOTTLE ONE (16:05)
--- NOTE | 2021-07-23 16:09 | NUR ---
PT'S LEFT PUPIL IS DILATED Addendum: 07/23/21 at 1609 by LHAFEN PT'S EYE WAS DILATED AT THE EYE DOCTOR
--- NOTE | 2021-07-23 16:13 | NUR ---
DR HANLEY AWARE OF VS AND MENTAL STATUS
--- NOTE | 2021-07-23 16:17 | NUR ---
DR HANLEY IN ROOM
--- NOTE | 2021-07-23 16:18 | NUR ---
LAB IN ROOM
[2021-07-23 16:31] LABS: BASOPHILS % (AUTO) 1 % (0-1); EOSINOPHILS % (AUTO) 2 % (1-7); LYMPHOCYTES % (AUTO) 17 % (22-44); MEAN CORPUSCULAR HEMOGLOBIN 27.8 pg (27.0-34.8); MEAN CORPUSCULAR HGB CONC 33.8 g/dL (32.4-35.8); MEAN PLATELET VOLUME 8.4 fL (7.4-10.4); MONOCYTES % (AUTO) 6 % (2-9); NEUTROPHILS % (AUTO) 74 % (42-75); PLATELET COUNT 164 x10^3/uL (130-400); RED BLOOD COUNT 5.74 x10^6/uL (3.82-5.3); RED CELL DISTRIBUTION WIDTH 13.7 % (9.6-15.2)
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
--- NOTE | 2021-07-23 16:58 | NUR ---
NEURO TELE TALKING WITH PATIENT IN ROOM
[2021-07-23 17:26] VITALS: BP 125/77
--- NOTE | 2021-07-23 17:37 | NUR ---
PT USED LEFT ARM TO ROLL OVER TO PLACE PT ON BED TERRY. VS STABLE. FRIEND AT BEDSIDE CALL LIGHT IN PLACE. WILL CONTINUE TO MONITOR .
[2021-07-23 17:50] LABS: PROTHROMBIN TIME 10.7 Seconds (9.6-11.5)
[2021-07-23 17:53] LABS: PARTIAL THROMBOPLASTIN TIME < 23 Seconds (25-31)
[2021-07-23] MEDS ORDERED: SODIUM CHLORIDE 0.9% 1,000ML IVBOLUS ONE (18:30)
[2021-07-23] MEDS ORDERED: PROCHLORPERAZINE 5 MG/ML, 2ML IVPush ONE (18:30)
[2021-07-23] MEDS ORDERED: KETOROLAC 30 MG/1 ML IVPush ONE (18:30)
[2021-07-23] MEDS ORDERED: DIPHENHYDRAMINE 50 MG/ML, 1ML IVPush ONE (18:30)
--- NOTE | 2021-07-23 18:35 | NUR ---
REPORT GIVEN TO CASSIE GRIFFIN
[2021-07-23] MEDS ORDERED: PROCHLORPERAZINE 5 MG/ML, 2ML ONE (18:51)
[2021-07-23] MEDS ORDERED: DIPHENHYDRAMINE 50 MG/ML, 1ML ONE (18:51)
[2021-07-23] MEDS ORDERED: KETOROLAC 30 MG/1 ML ONE (18:51)
--- NOTE | 2021-07-23 19:01 | NUR ---
pt medicated per order, tolerated well.
--- NOTE | 2021-07-23 19:35 | NUR ---
pt educated on dc instructions, verbalized understanding. ambulatory to dc desk with steady gait, accompanied by .
== END 2021-07-23 19:43 | disposition home or self-care (01) ==
LOC: ED 18:36
DX: G43.909 Migraine, unspecified, not intractable, without status migrainosus (principal); G81.90 Hemiplegia, unspecified affecting unspecified side; I10 Essential (primary) hypertension; E11.9 Type 2 diabetes mellitus without complications; Z86.73 Personal history of transient ischemic attack (TIA), and cerebral infarction without residual deficits
CPT/HCPCS: 70450; 70496; 70498; 80047; 82962; 85025; 85610; 85730; 93005; 96374; 96375; 99285; J0780; J1200; J1885; J7030; Q9967